=== PATIENT | male | born 1945 | race Caucasian/White ===

== ENCOUNTER → 2017-02-23 | Outpatient (CLI) | payer MEDICARE, OTHER ==
[~2017-02-23] MED LIST: AMLO5TAB2 PO; ATOR40TA PO; INSU100I11 SQ; INSU100V13 SQ; LOSA25TA5 PO; PANT40TA5 PO; RIVA20TA PO
== END | disposition home or self-care (01) ==
LOC: CFH 10:21
PROVIDERS: ATTEND Otolaryngology
DX: K21.9 Gastro-esophageal reflux disease without esophagitis (principal)
CPT/HCPCS: 74220

== ENCOUNTER 2017-04-02 08:45 | Inpatient (IN) | payer OTHER ==
[~2017-04-02] VITALS: Ht 182.9 cm; Wt 80.7 kg
[~2017-04-02 08:45] MED LIST changes: +ASPI-496 PO; +METO25TA35 PO; +REGULAR INSULIN 62.5 UNITS in SODIUM CHLORIDE 0.9% 249.375 ML IV PRN
[2017-04-02] MEDS ORDERED: LACTATED RINGERS 1,000 ML IV SCH (10:00)
[2017-04-02 10:30] VITALS: BP 159/83
[2017-04-02] MEDS ORDERED: ALBUMIN HUMAN 5% 0 ML ONE (12:16)
[2017-04-02] MEDS ORDERED: HEPARIN 1,000 UNITS/ML, 10ML ONE (12:46)
[2017-04-02] MEDS ORDERED: PROTAMINE SULFATE 10 MG/ML, 5ML ONE (12:46)
[2017-04-02] MEDS ORDERED: BACITRACIN 50,000 UNIT ONE (12:47)
[2017-04-02] MEDS ORDERED: THROMBIN 20,000 UNIT VIAL TP ONE (12:47)
[2017-04-02] MEDS ORDERED: MIDAZOLAM 1 MG/ML, 2ML ONE (13:14)
[2017-04-02] MEDS ORDERED: FENTANYL PF 250 MCG/5ML ONE (13:15)
[2017-04-02] MEDS ORDERED: PROPOFOL 10 MG/ML, 20ML ONE (13:15)
[2017-04-02] MEDS ORDERED: KETAMINE 10 MG/ML, 20ML ONE (13:17)
[2017-04-02] MEDS ORDERED: CEFAZOLIN 1,000 MG ONE ×2 (13:34)
[2017-04-02] MEDS ORDERED: ONDANSETRON 2MG/ML, 2ML ONE (13:34)
[2017-04-02] MEDS ORDERED: DEXAMETHASONE 4 MG/ML, 1ML ONE (13:34)
[2017-04-02] MEDS ORDERED: ROCURONIUM 10 MG/ML,10ML ONE (13:34)
[2017-04-02] MEDS ORDERED: PHENYLEPHRINE 10 MG/ML ONE (13:34)
[2017-04-02] MEDS ORDERED: EPHEDRINE 50 MG/ML, 1ML ONE (13:34)
[2017-04-02] MEDS ORDERED: HEPARIN 1,000 UNITS/ML, 10ML IV ONE (13:58)
[2017-04-02] MEDS ORDERED: BACITRACIN 50,000 UNIT IM ONE (13:59)
[2017-04-02] MEDS ORDERED: HYDROmorphone 1 MG/ML, 1ML IV PRN (16:00)
[2017-04-02] MEDS ORDERED: ONDANSETRON 2MG/ML, 2ML IVPush PRN ×2 (16:00→16:30)
[2017-04-02] MEDS ORDERED: ACETAMINOPHEN 325 MG TABLET PO PRN (16:00)
[2017-04-02] MEDS ORDERED: MEPERIDINE/PF 25MG/0.5ML IVPush PRN (16:00)
[2017-04-02] MEDS ORDERED: OXYcodone 5 MG/5 ML ORAL.SOL UDC PO PRN (16:00)
[2017-04-02] MEDS ORDERED: PROMETHAZINE 25 MG/ML, 1ML IV PRN (16:00)
[2017-04-02] MEDS ORDERED: FENTANYL PF 100 MCG/2ML IV PRN (16:00)
[2017-04-02] MEDS ORDERED: MIDAZOLAM 1 MG/ML, 2ML IV PRN (16:00)
[2017-04-02] MEDS ORDERED: ALBUTEROL SULFATE 2.5 MG/3 ML NPPB PRN (16:00)
[2017-04-02] MEDS ORDERED: hydrALAzine 20 MG/ML, 1ML IV PRN (16:00)
[2017-04-02] MEDS ORDERED: ENOXAPARIN 40 MG/0.4 ML SQ SCH (16:30)
[2017-04-02] MEDS ORDERED: LABETALOL 5MG/ML, 20ML ONE (16:42)
[2017-04-02] MEDS: LABETALOL 5MG/ML, 20ML IV PRN ×2 (16:42→16:48)
[2017-04-02] MEDS ORDERED: hydrALAzine 20 MG/ML, 1ML ONE (17:01)
[2017-04-02] MEDS ORDERED: ACETAMINOPHEN 650 MG/20.3 ML UDC ONE (17:11)
[2017-04-02] MEDS ORDERED: OXYcodone 5 MG/5 ML ORAL.SOL UDC ONE (17:11)
[2017-04-02 19:06] VITALS: BP 125/65
[2017-04-02] MEDS: METOPROLOL TARTRATE 25 MG TABLET PO SCH (20:03)
[2017-04-02] MEDS: LACTATED RINGERS 1,000 ML IV SCH (20:06)
[2017-04-02] MEDS ORDERED: ATORVASTATIN 40 MG TABLET PO SCH (21:00)
[2017-04-02] MEDS: INSULIN GLARGINE 100 UNITS/ML, PEN SQ-INSULIN SCH (21:49)
[2017-04-02] MEDS: CEFAZOLIN PMX 2GM/50ML 50 ML IVPB SCH (21:50)
[2017-04-02 23:31] VITALS: BP 116/68
[2017-04-03 03:58] VITALS: BP 127/67
[2017-04-03] MEDS: CEFAZOLIN PMX 2GM/50ML 50 ML IVPB SCH (06:20)
[2017-04-03] MEDS: LACTATED RINGERS 1,000 ML IV SCH (07:11)
[2017-04-03] MEDS: INSULIN ASPART 100 UNITS/ML, PEN SQ-INSULIN SCH (08:00)
[2017-04-03] MEDS: [UNRECOGNIZED DRUG - REMARK] MC SCH ×2 (08:00→09:00)
[2017-04-03 08:43] VITALS: BP 108/56
[2017-04-03] MEDS ORDERED: ENOXAPARIN 40 MG/0.4 ML SQ SCH (09:00)
[2017-04-03] MEDS ORDERED: RIVAROXABAN 20 MG TABLET PO SCH (09:00)
[2017-04-03] MEDS ORDERED: PANTOPROZOLE 40MG TABLET PO SCH (09:00)
[2017-04-03] MEDS ORDERED: AMLODIPINE 5 MG TABLET PO SCH (09:00)
[2017-04-03] MEDS ORDERED: LOSARTAN 25MG TABLET PO SCH (09:00)
[2017-04-03] MEDS ORDERED: ASPIRIN 81 MG TABLET EC PO SCH (09:00)
[2017-04-03] MEDS: METOPROLOL TARTRATE 25 MG TABLET PO SCH (09:32)
[2017-04-03] MEDS: INSULIN GLARGINE 100 UNITS/ML, PEN SQ-INSULIN SCH (09:33)
[2017-04-03 13:57] VITALS: BP 112/66
[2017-04-03] MEDS ORDERED: INSULIN LISPRO 100 UNITS/ML, PEN SQ-INSULIN SCH (16:00)
[2017-04-03 16:19] LABS: BASOPHILS # (AUTO) 0.06 x10^3/uL (0-0.1); BASOPHILS % (AUTO) 1 % (0-1); EOSINOPHILS % (AUTO) 0 % (1-7); LYMPHOCYTES % (AUTO) 10 % (22-44); MD NO; MEAN CORPUSCULAR HGB CONC 33.7 g/dL (33.2-36.2); MEAN CORPUSCULAR VOLUME 92.2 fL (81-97); MEAN PLATELET VOLUME 7.8 fL (7.4-10.4); MONOCYTES # (AUTO) 1.11 x10^3/uL (0.2-0.8); MONOCYTES % (AUTO) 8 % (2-9); NEUTROPHILS # (AUTO) 11.35 x10^3/uL (1.8-6.8); NEUTROPHILS % (AUTO) 82 % (42-75); PLATELET COUNT 188 x10^3/uL (130-400); RED BLOOD COUNT 4.43 x10^6/uL (4.38-5.82)
[2017-04-03 16:27] LABS: ALBUMIN 3.3 g/dL (3.4-5.0); ANION GAP 8 mmol/L (5-15); CHLORIDE 106 mmol/L (98-107); CREATININE 1.31 mg/dL (0.7-1.3)
[2017-04-03 17:07] VITALS: BP 119/74
== END 2017-04-03 17:12 | disposition home or self-care (01) | DRG 253 ==
LOC: ORIP 08:45 → EDSTATUS 13:30 → 4NOR 18:09
PROVIDERS: ADMIT Surgery; ATTEND Surgery
PROC: 04CL0ZZ Extirpation of Matter from Left Femoral Artery, Open Approach (ICD-10-PCS; 2017-04-02)
PROC: 04PY0JZ Removal of Synthetic Substitute from Lower Artery, Open Approach (ICD-10-PCS; 2017-04-02)
PROC: 041L0JH Bypass Left Femoral Artery to Right Femoral Artery with Synthetic Substitute, Open Approach (ICD-10-PCS; principal; 2017-04-02 13:30)
DX: T82.898A Other specified complication of vascular prosthetic devices, implants and grafts, initial encounter (principal); I74.3 Embolism and thrombosis of arteries of the lower extremities; E11.51 Type 2 diabetes mellitus with diabetic peripheral angiopathy without gangrene; E11.65 Type 2 diabetes mellitus with hyperglycemia; E78.5 Hyperlipidemia, unspecified; I10 Essential (primary) hypertension; I25.10 Atherosclerotic heart disease of native coronary artery without angina pectoris; Y83.2 Surgical operation with anastomosis, bypass or graft as the cause of abnormal reaction of the patient, or of later complication, without mention of misadventure at the time of the procedure; Z79.01 Long term (current) use of anticoagulants; Z79.4 Long term (current) use of insulin; Z80.3 Family history of malignant neoplasm of breast; Z86.718 Personal history of other venous thrombosis and embolism; Z87.891 Personal history of nicotine dependence; Z90.49 Acquired absence of other specified parts of digestive tract; Z95.5 Presence of coronary angioplasty implant and graft
CPT/HCPCS: 36415; 80048; 82040; 82330; 82803; 82947; 82962; 83735; 84100; 84132; 84295; 85014; 85025; 86850; 86900; J0690; J1100; J1644; J1815; J2250; J2405; J2704; J2720; J3010; P9045; C1768; J0360; J2370; J7050; J7120

== ENCOUNTER 2017-10-22 06:27 | Day surgery (SDC) | payer OTHER ==
[2017-10-19 13:38] LABS: ALANINE AMINOTRANSFERASE 22 U/L (12-78); ALBUMIN 3.6 g/dL (3.4-5.0); ANION GAP 5 mmol/L (5-15); CALCIUM 8.9 mg/dL (8.5-10.1); CHLORIDE 107 mmol/L (98-107); CREATININE 1.02 mg/dL (0.7-1.3)
[2017-10-19 13:40] LABS: ALKALINE PHOSPHATASE 140 U/L (45-117); BILIRUBIN,TOTAL 0.7 mg/dL (0.2-1.0); TOTAL PROTEIN 6.8 g/dL (6.4-8.2)
[~2017-10-22] VITALS: Ht 188 cm; Wt 77.4 kg
[~2017-10-22 06:27] MED LIST changes: +INSU300I SC; -REGULAR INSULIN 62.5 UNITS in SODIUM CHLORIDE 0.9% 249.375 ML IV PRN
[2017-10-22 07:07] VITALS: BP 124/83
[2017-10-22] MEDS ORDERED: EPINEPHRINE 1 MG/ML, 1ML ONE (07:09)
[2017-10-22] MEDS: LACTATED RINGERS 1,000 ML IV SCH ×2 (07:18→07:43)
[2017-10-22] MEDS ORDERED: ACETAMINOPHEN 500 MG TABLET PO ONE (07:30)
[2017-10-22] MEDS ORDERED: FENTANYL PF 100 MCG/2ML ONE (08:17)
[2017-10-22] MEDS ORDERED: PROPOFOL 10 MG/ML, 20ML ONE (08:18)
[2017-10-22] MEDS ORDERED: ONDANSETRON 2MG/ML, 2ML ONE (08:18)
[2017-10-22] MEDS ORDERED: CEFAZOLIN 1,000 MG ONE (08:18)
[2017-10-22] MEDS ORDERED: DEXAMETHASONE 4 MG/ML, 1ML ONE (08:18)
[2017-10-22] MEDS ORDERED: SUCCINYLCHOLINE 20 MG/ML, 10ML ONE (08:21)
[2017-10-22] MEDS ORDERED: FENTANYL PF 100 MCG/2ML IV PRN (09:00)
[2017-10-22] MEDS ORDERED: MORPHINE SULFATE 4 MG/ML, 1ML IVPush PRN (09:00)
[2017-10-22] MEDS ORDERED: hydrALAzine 20 MG/ML, 1ML IV PRN (09:00)
[2017-10-22] MEDS ORDERED: LABETALOL 5MG/ML, 20ML IV PRN (09:00)
== END 2017-10-22 10:30 | disposition home or self-care (01) ==
LOC: OUT 06:27
PROVIDERS: ATTEND Otolaryngology
DX: R13.10 Dysphagia, unspecified (principal); R49.0 Dysphonia; E11.9 Type 2 diabetes mellitus without complications; E78.5 Hyperlipidemia, unspecified; I25.10 Atherosclerotic heart disease of native coronary artery without angina pectoris; I73.9 Peripheral vascular disease, unspecified; Z86.718 Personal history of other venous thrombosis and embolism; Z72.0 Tobacco use; Z98.890 Other specified postprocedural states; Z87.891 Personal history of nicotine dependence; Z79.82 Long term (current) use of aspirin; Z79.4 Long term (current) use of insulin; Z79.899 Other long term (current) drug therapy
CPT/HCPCS: 31525; 36415; 43202; 43450; 80053; 82962; 88305; 93005; J0330; J0690; J1100; J2405; J2704; J3010; J7120; J0171